=== PATIENT | male | born 1980 | race Caucasian/White ===

== ENCOUNTER 2022-10-27 17:34 | Emergency (ER) | payer OTHER ==
[~2022-10-27] VITALS: Ht 195.6 cm; Wt 143.2 kg
[2022-10-27 17:49] VITALS: TEMP 97.5
[2022-10-27] MEDS ORDERED: bacitracin 15gm ointment TP ONE (20:15)
[2022-10-27] MEDS ORDERED: TETanus/Pertussis (Acell)/Diphther VAC/PF (Tdap-Adult) 0.5ml syringe IMVAC ONE (20:15)
[2022-10-27] MEDS ORDERED: LIDOcaine 1% 30ml preserv. free vial IJ ONE (20:15)
[2022-10-27 21:39] VITALS: BP 134/87; PULSE 95; RESP 16; O2SAT 98
== END 2022-10-27 21:49 | disposition home or self-care (01) ==
LOC: ER 17:34
DX: S61.011A Laceration without foreign body of right thumb without damage to nail, initial encounter (principal); W26.8XXA Contact with other sharp object(s), not elsewhere classified, initial encounter; Y93.89 Activity, other specified; Y92.89 Other specified places as the place of occurrence of the external cause; Y99.8 Other external cause status
CPT/HCPCS: 12001; 73140; 90471; 90715; 99283